=== PATIENT | female | born 1980 | race Caucasian/White ===

== ENCOUNTER 2016-06-08 08:43 | Emergency (ER) | payer OTHER ==
[~2016-06-08] VITALS: Ht 167.6 cm; Wt 68.0 kg
[~2016-06-08 08:43] MED LIST: AMOXICILLIN500 M2 PO; CHILDREN'S ASPI81 M1 PO; CLINDAMYCIN HC150 M1; FUROSEMIDE20 M1 PO; HYDROCHLOROTH12.5 M2 PO; HYSINGLA PO; IBUPROFEN800 M1 PO; LIORESAL 10MG T10 MG PO; MOTRIN 600 MG600 MG PO; NAPROSYN500 M1 PO; NORCO 5-325 TA1 EACH PO; ORPHENADRINE C100 MG PO; OXYCODONE HCL10 M2 PO; OXYCODONE HCL5 M1 PO; ULTRAM(MONOGRAP50 MG PO; VALIUM2 M1 PO; VITAMIN B12250 MCG PO
[2016-06-08] MEDS ORDERED: GABAPENTIN300 M2 PO (09:16)
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
--- NOTE | 2016-06-08 10:21 | RADIOLOGY REPORT ---
EXAMINATION: XR HAND, RIGHT CLINICAL INFORMATION: Third finger pain. COMPARISON: None TECHNIQUE: AP, lateral, and oblique views of the right hand. FINDINGS: There is an osseous extrusion off the mid to distal shaft of the right middle phalanx ulnarly somewhat atypical for a neck size ptosis or osteochondroma given its lucent center. There is a narrow zone of transition and appears to be arising from the cortex. This lesion measures 4 mm maximal dimension. This may represent a turret exostosis, especially if the patient has had a previous injury in this region. Comparison with any prior plain films would be helpful. Certainly it does not have an aggressive appearance. If patient is point tender in this region, MR imaging could be performed to further evaluate and/or orthopedic consultation. IMPRESSION: No acute fracture or dislocation. Small probable exostosis right third proximal phalanx.
[2016-06-08] MEDS ORDERED: VALIUM2 M1 PO (10:30)
[2016-06-08 10:42] VITALS: BP 130/80
[2016-08-23] MEDS ORDERED: PERCOCET 5-3251 EACH PO (16:08)
== END 2016-06-08 10:42 ==
LOC: ERH 08:43
DX: M89.9 Disorder of bone, unspecified (principal); G89.29 Other chronic pain; M54.2 Cervicalgia
CPT/HCPCS: 73130-RT; 81025

== ENCOUNTER 2016-06-24 08:33 | Emergency (ER) | payer OTHER ==
[~2016-06-24] VITALS: Ht 167.6 cm; Wt 68.0 kg
[~2016-06-24 08:33] MED LIST changes: +GABAPENTIN300 M2 PO
--- NOTE | 2016-06-24 08:53 | ED GENERAL ADULT ---
History of Present Illness General Chief Complaint: Neck/Upper Back Pain/Injury Stated Complaint: NECK PAIN/CHRONIC Source: patient Exam Limitations: no limitations Vital Signs & Intake/Output Vital Signs & Intake/Output ED Intake and Output 06/25 0000 06/24 1200 Intake Total 120 Output Total Balance 120 Intake, Oral 120 Patient 150 lb Weight Allergies Coded Allergies: tramadol (Intermediate, LIGHTHEADED AND NOT FEEL RIGHT, HOSPITALIZED 06/24/16) Reconcile Medications Aspirin (Children's Aspirin) 81 MG TAB 1 TAB PO DAILY HEART HEALTH (Reported) Cyanocobalamin (Vitamin B12) 250 MCG TAB 1 TAB PO DAILY SUPPLEMENT (Reported) Cyclobenzaprine HCl 10 MG TABLET 1 TAB PO BID PRN pain Gabapentin 300 MG CAPSULE 1 CAP PO TID PAIN (Reported) Hydrochlorothiazide 12.5 MG TABLET 1 TAB PO DAILY BP (Reported) Meloxicam (Mobic) 15 MG TABLET 1 TAB PO DAILY PRN pain Triage Note: PT TO ED WITH C/O NECK PAIN, "MY BOYFRIEND WAS HAVING ISSUES YESTERDAY AND HE WAS FALLING AND I CAUGHT HIM A COUPLE OF TIMES". Triage Nurses Notes Reviewed? yes Onset: Abrupt Duration: day(s): Timing: recent history : No Patient currently breastfeeds: No HPI: 06/24/16 9 AM This is a 35-year-old female presents to the emergency department complaining of neck pain. The patient states that she has a history of chronic cervical disc herniations. She says that her boyfriend has been having vertigo and she's had a catch him several times and this has exacerbated her neck pain. The onset of the symptoms was abrupt, the duration has been several days, the severity is significant as her symptoms required her to come to the emergency department for care. She has no trauma. No bowel or bladder dysfunction. No upper extremity weakness or numbness. Past History Travel History Traveled to [place] past 21 day No Medical History Any Pertinent Medical History? 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 No Review of Systems Review of Systems Constitutional: Denies: fever. EENTM: Denies: visual changes. Respiratory: Reports: no symptoms. Cardiovascular: Reports: no symptoms. GI: Reports: no symptoms. Genitourinary: Reports: no symptoms. Musculoskeletal: Reports: see HPI. Skin: Reports: no symptoms. Neurological/Psychological: Denies: numbness. Hematologic/Endocrine: Reports: no symptoms. Immunologic/Allergic: Reports: no symptoms. Physical Exam Physical Exam General Appearance: alert, awake, anxious, mild distress Head: atraumatic, normal appearance Eyes: Bilateral: normal appearance, PERRL, EOMI. Ears, Nose, Throat: normal ENT inspection Neck: limited range of motion Respiratory: decreased breath sounds Cardiovascular: regular rate/rhythm Peripheral Pulses: 4+ radial (R), 4+ radial (L) Back: normal range of motion Extremities: normal inspection Neurologic/Psych: no motor/sensory deficits, awake, alert, oriented x 3 Skin: intact, normal color, warm/dry Core Measures ACS in differential dx? No CVA/TIA Diagnosis: No Severe Sepsis Present: No Septic Shock Present: No Progress Differential Diagnoses I considered the following diagnoses in my evaluation of the patient: [Epidural abscess, disc herniation, central cord syndrome, cervical strain] Plan of Care: follow-up with [facility] practice or with her doctor this week. Initial ED EKG: none Departure Departure Disposition: HOME OR SELF CARE Condition: Stable Clinical Impression Primary Impression: Cervical strain Referrals: UNKNOWN (PCP/Family) Departure Forms: Customer Survey General Discharge Information Prescriptions: Current Visit Scripts Cyclobenzaprine HCl 1 TAB PO BID PRN pain #20 TAB Meloxicam (Mobic) 1 TAB PO DAILY PRN pain #10 TAB Comments the patient's symptoms improved with meds. she was given a soft cervical collar. to follow-up with her doctor this week. Critical Care Note Critical Care Note Critical Care Time: non-applicable
[2016-06-24] MEDS ORDERED: CYCLOBENZAPRINE10 M1 PO (09:10)
[2016-06-24] MEDS ORDERED: MOBIC15 M1 PO (09:10)
[2016-06-24 10:10] VITALS: BP 142/88
[2016-08-23] MEDS ORDERED: PERCOCET 5-3251 EACH PO (16:08)
== END 2016-06-24 10:20 ==
LOC: ERH 08:33
DX: S16.1XXA Strain of muscle, fascia and tendon at neck level, initial encounter (principal); X58.XXXA Exposure to other specified factors, initial encounter
CPT/HCPCS: 96372; J1885

== ENCOUNTER 2016-08-25 02:21 | Inpatient (IN) | payer OTHER ==
[~2016-08-25] VITALS: Ht 167.6 cm; Wt 78.0 kg
[~2016-08-25 02:21] MED LIST changes: +CYCLOBENZAPRINE10 M1 PO; +MOBIC15 M1 PO; +PERCOCET 5-3251 EACH PO
--- NOTE | 2016-08-25 11:44 | Operative Report ---
Operative/Inv Procedure Report Surgery Date: 08/25/16 Name of Procedure: cysto: bilateral stent insertion Pre-Operative Diagnosis: fibroids Post-Operative Diagnosis: same Estimated Blood Loss: scant Surgeon/Assembler Musical Instruments: MD MASON LATHAM-UROLOGY Anesthesia: general endotracheal tube Specimens: UCX Complications: NONE Operative/Procedure Note Note: The patient was taken to the operating room and placed on the OR table in supine position. Timeout was performed, with the patient awake, to confirm identify, planned procedures, anesthesia, antibiotics and other pertinent arpan-operative information. After adequate anesthesia, and IV antibiotics, the patient was placed in lithotomy Yellow-fin stirrups. She was then draped and prepped in the usual surgical fashion, including a vaginal prep. A 22 Kuwaiti cystoscope sheath with a 30 angle lens was inserted into the bladder without significant difficulty. The bladder was thoroughly and systematically examined, and was noted to be free of tumor, free of stone, free of endometriosis. Both ureteral orifices were in their orthotopic positions with clear reflux bilaterally. Under direct visualization the left orifice was intubated with a 5 Kuwaiti whistle-tip catheter, which was advanced easily into the left kidney pelvis. The right ureteral orifice was intubated with a second 5 Kuwaiti ureteral whistle tip catheter, and advanced into the right renal pelvis without difficulty. For identification purposes the blue marked stent went into the left kidney and the right ureteral stent was marked red. Urine culture was obtained and sent to pathology. The cystoscope was then removed leaving both stents in proper place. An 18 Kuwaiti Montero catheter was inserted draining clear fluid and 10 mL of sterile water was then placed in the balloon. The ends ureteral stents, which protruded externally, were taped to the Montero catheter in order to secure their position. The individual ureteral stents were then connected to their individual drainage devices. The patient tolerated the procedure well. All sponge needle and instrument count were correct at the end of this procedure. The patient was then placed in supine position with Venodyne's in place. At this point, Dr. Purdy was able to proceed with her patient's surgery. Discharge Disposition: PROCEED WITH DR. PURDY CC: NOA LONDON,MASON
[2016-08-25 12:55] VITALS: BP 132/64
--- NOTE | 2016-08-25 17:41 | Operative Report ---
Operative/Inv Procedure Report Surgery Date: 08/25/16 Name of Procedure: Total abdominal hysterectomy Pre-Operative Diagnosis: Metromenorrhagia Post-Operative Diagnosis: Same Estimated Blood Loss: 500 Surgeon/Veterinary Meat Inspector: RAFIA MARIA MD Anesthesia: general endotracheal tube Operative/Procedure Note Note: Procedure note patient was taken the operating room placed supine position after adequate induction general anesthesia via endotracheal tube patient placed in dorsolithotomy position the vagina was prepped and draped so fashion Dr. Enriquez were placed stents he'll dictate that part of the case patient was returned spine position the abdomen was prepped draped so fashion through an old Pfannenstiel skin incision skin was cut was carried down to rectus fascia which was cut in curvilinear fashion I direction peritoneal cavity was entered high into the abdomen Woody O'Matt was placed in usual fashion patient was placed in Trendelenburg round ligament on the right was identified suture- ligated using 0 round ligament left was identified suture-ligated 0 at this point a bladder flap was developed sharply as well as bluntly using both Metzenbaums as well as a Bovie on sequentially cervical branches uterine artery clamped and cut on the right and left and oversewn using 0 to level of the external os at this point the specimen was removed using a Bovie the cuff was reapproximated using interrupted [id number]'s of 0 and running locking suture of 0 hemostasis was apparent the abdomen was irrigated copious amounts warm sounds were clear hemostasis was apparent all pedicles were reexamined abdomen was irrigated close amounts warm saline I and hemostasis was apparent the peritoneum was reapproximated 0 the fascia was reapproximated to continue sutures #1 skin was reapproximated maggie at the end the case the counts correct the stents removed bilaterally tip intact the vagina had been irrigated for hemostasis is well the patient was extubated awakened from anesthesia and transferred recovery room awake alert with counts correct Findings: 10 week size fibroid uterus normal ovaries bilaterally evidence of tubal ligation
[2016-08-25] MEDS ORDERED: IBUPROFEN800 M1 PO (17:55)
[2016-08-25 19:17] VITALS: BP 136/82
[2016-08-25 20:00] VITALS: BP 148/72
[2016-08-25 20:45] VITALS: BP 148/72
[2016-08-25 22:00] VITALS: BP 140/70
[2016-08-25 23:54] VITALS: BP 122/76
[2016-08-26] VITALS (9 sets, daily range): BP systolic 122–132; BP diastolic 70–81
[2016-08-26 07:59] LABS: ABSOLUTE BASOPHIL COUNT 0 /CUMM (0.0-0.2); ABSOLUTE EOSINOPHIL COUNT 0 /CUMM (0.0-0.7); ABSOLUTE MONOCYTE COUNT 1.5 /CUMM (0.10-0.60); BASOPHIL % 0 % (0.0-2.0); EOSINOPHIL % 0 % (0-5); MEAN PLATELET VOLUME 8.6 FL (7.4-10.4)
[2016-08-26 08:21] LABS: ABSOLUTE GRANULOCYTE CT 17.2 /CUMM (1.4-6.5); ABSOLUTE LYMPH COUNT 1.8 /CUMM (1.2-3.4); GRANULOCYTE % 84.1 % (42.2-75.2); MEAN CORPUSCULAR HGB CONC 32.3 G/DL (33.0-37.0); MEAN CORPUSCULAR VOLUME 92.9 FL (81.0-99.0); PLATELET COUNT 378 /CUMM (130-400); RBC DISTRIBUTION WIDTH 16.6 % (11.5-14.5); RED BLOOD CELL CT 3.59 /CUMM (4.20-5.40)
[2016-08-26 08:23] LABS: HEMATOCRIT 33.4 % (37-47); WHITE BLOOD CELL COUNT 20.5 /CUMM (4.8-10.8)
--- NOTE | 2016-08-26 09:44 | PN- Post Delivery/GYN ---
Subjective Subjective: WANTS TO GO HOME POSITIVE BM Objective Last 24 Hrs of Vital Signs/I&O Vital Signs Date Time Temp Pulse Resp B/P Pulse O2 O2 Flow FiO2 Ox Delivery Rate 08/26 0739 99.9 110 20 132/81 93 Room Air / 0652 98.2 113 20 128/70 90 Room Air / 0600 98.2 113 20 128/70 04/07 0422 98.8 113 20 132/78 91 Room Air / 0400 98.8 113 20 132/78 04/07 0159 98.1 115 20 124/70 04/07 0151 98.1 115 20 124/70 93 Room Air 04/07 0000 98.8 120 20 122/76 04/06 2354 98.8 120 20 122/76 91 Room Air / 2200 98.2 119 16 140/70 04/ 2045 96.8 118 16 148/72 91 Room Air / 2000 98.6 118 16 148/72 04/06 1917 98.9 114 20 136/82 94 / 1255 98.7 105 20 132/64 97 Nasal 2.0L Cannula Intake & Output 08/26 1600 08/26 0800 08/26 0000 Intake Total 1440 715 Output Total 925 1250 Balance 515 -535 Intake, IV 1000 375 Intake, Oral 440 340 Output, Urine 925 1250 Physical Exam: PE PALE WF INNAD ABD SOFT NT INCISION CDI EXT -HOMANS -EDEMA Assessment/Plan Assessment/Plan ASSESS S/P JOSEPHINE PLAN D/C HOME
--- NOTE | 2016-09-08 14:15 | Surgical Discharge Summary ---
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 Home Who Do You Live With? Significant Other What is Your Primary Language? Burkinan Review of Systems: -13 point review of systems as stated in the [facility] Hospital Course Course Attending Physician: RAFIA MARIA MD Primary Care Physician: ADELA LONDON,[facility] Course: She was admitted for a total abdominal hysterectomy she did well first postoperative day patient wanted to go home her son is 10 years old does not do well with outer she Basque as daily and regular for throughout the evening she was walking freely without usual Montero and urinating without Montero was discharged on first postoperative follow-up physical exam Chappel white female poor dentition HEENT anicteric lungs clear abdomen soft incision clean dry and intact with maggie in place extremities negative edema negative Homans Allergies: Coded Allergies: tramadol (Intermediate, LIGHTHEADED AND NOT FEEL RIGHT, HOSPITALIZED 06/24/16) Disposition Summary Disposition Principal Diagnosis: Post total abdominal hysterectomy Additional Diagnosis: Anxiety Discharge Disposition: home or self care Discharge Instructions General Discharge Information Code Status: Full Code Patient's Diet: Regular Patient's Activity: Self-limited no heavy lifting greater than 15 pounds pelvic rest no top baths for 6 weeks no driving for 2 weeks Follow-Up Instructions/Appts: My office 1 week for removal of maggie Medications at Discharge Discharge Medications: Continue taking these medications: Aspirin (Children's Aspirin) 81 MG TAB 1 Tablet ORAL DAILY Cyanocobalamin (Vitamin B12) 250 MCG TAB 1 Tablet ORAL DAILY Hydrochlorothiazide (Hydrochlorothiazide) 12.5 MG TABLET 1 Tablet ORAL DAILY Qty = 90 Comments: Last Taken: 08/26/16 Time: 1000 AM Gabapentin (Gabapentin) 300 MG CAPSULE 1 Capsule ORAL THREE TIMES DAILY Qty = 90 Comments: Last Taken: 08/26/16 Time: 0600 AM Oxycodone HCl/Acetaminophen (Percocet 5-325 MG Tablet) 5 MG-325 MG TABLET 1 Tablet ORAL 4 TIMES A DAY Comments: Last Taken: 08/26/16 Time: 1000 AM Start taking the following new medications: Ibuprofen (Ibuprofen) 800 MG TABLET 800 Milligram ORAL EVERY SIX HOURS NEEDED as needed for PAIN Qty = 60 No Refills Comments: NOT GIVEN AT HOSPITAL
== END 2016-08-26 10:27 | DRG 513 ==
LOC: ENRESERVTM → ENRESERVDT → 2NB 02:21 → DELPENDDIS 02:21 → SDA 02:21 → ENPENDDIS 02:21 → SDA 07:00 → 2NB 12:35
PROVIDERS: ADMIT Specialist
PROC: 0UT90ZZ Resection of Uterus, Open Approach (ICD-10-PCS; principal; 2016-08-25)
PROC: 0UTC0ZZ Resection of Cervix, Open Approach (ICD-10-PCS; principal; 2016-08-25)
PROC: 0T788DZ Dilation of Bilateral Ureters with Intraluminal Device, Via Natural or Artificial Opening Endoscopic (ICD-10-PCS; 2016-08-25)
DX: N92.1 Excessive and frequent menstruation with irregular cycle (principal); I10 Essential (primary) hypertension; F17.210 Nicotine dependence, cigarettes, uncomplicated
CPT/HCPCS: 2NBSP; 36415; 81001; 81025; 87086; 88307; 93005; 93010; J0131; J0694; J1170; J1200; J1650; J2405

== ENCOUNTER 2016-10-11 19:52 | Emergency (ER) | payer OTHER ==
[~2016-10-11] VITALS: Ht 167.6 cm; Wt 72.6 kg
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
[2016-10-11] MEDS ORDERED: CYCLOBENZAPRINE10 M1 PO (22:21)
[2016-10-11] MEDS ORDERED: HYDROCODON-ACE1 EAC2 PO (22:21)
[2016-10-11 22:37] VITALS: BP 138/85
== END 2016-10-11 22:38 ==
LOC: ERH 19:52
DX: S16.1XXA Strain of muscle, fascia and tendon at neck level, initial encounter (principal); S29.012A Strain of muscle and tendon of back wall of thorax, initial encounter; V49.50XA Passenger injured in collision with unspecified motor vehicles in traffic accident, initial encounter; Y92.415 Exit ramp or entrance ramp of street or highway as the place of occurrence of the external cause
CPT/HCPCS: 81025

== ENCOUNTER 2016-11-15 15:54 | Emergency (ER) | payer OTHER ==
[~2016-11-15] VITALS: Ht 162.6 cm; Wt 79.4 kg
[~2016-11-15 15:54] MED LIST changes: +HYDROCODON-ACE1 EAC2 PO
[2016-11-15 15:58] VITALS: BP 153/98
== END 2016-11-15 16:30 | disposition admitted as inpatient to this hospital (09) ==
LOC: ERH 15:54
DX: R59.0 Localized enlarged lymph nodes (principal)

== ENCOUNTER 2016-12-14 17:45 | Emergency (ER) | payer OTHER ==
[~2016-12-14] VITALS: Ht 162.6 cm; Wt 77.1 kg
--- NOTE | 2016-12-14 18:47 | ED THROAT/DENTAL COMPLAINT ---
History of Present Illness General Chief Complaint: Sore Throat, Dental Pain Stated Complaint: DENTAL PAIN Source: patient Exam Limitations: no limitations Vital Signs & Intake/Output Vital Signs & Intake/Output ED Intake and Output 12/15 0000 12/14 1200 Intake Total Output Total Balance Patient 170 lb Weight Allergies Coded Allergies: tramadol (Intermediate, LIGHTHEADED AND NOT FEEL RIGHT, HOSPITALIZED 06/24/16) Reconcile Medications Aspirin (Children's Aspirin) 81 MG TAB.CHEW 1 TAB PO DAILY HEART/BLOOD ( Reported) Clindamycin HCl (Cleocin HCl) 300 MG CAPSULE 1 CAP PO TID GUM INFECTION Cyclobenzaprine HCl 10 MG TABLET 1 TAB PO TID SPASMS Gabapentin 300 MG CAPSULE 1 CAP PO TID PAIN (Reported) Hydrochlorothiazide 12.5 MG TABLET 1 TAB PO DAILY BP (Reported) Hydrocodone/Acetaminophen (Hydrocodon-Acetaminophen 5-325) 5 MG-325 MG TABLET 1-2 TAB PO Q4-6 PRN PRN pain Ketorolac Tromethamine 10 MG TABLET 1 TAB PO TID PRN PAIN RECEIVED IM IN ER Triage Note: 36F WITH SWELLING TO RIGHT NECK BELOW JAW SINCE YESTERDAY, BECAME PAINFUL TODAY WHILE EATING. TOOK MOTRIN 800MG 2 HOURS AGO WITHOUT RELIEF. LUMP IS HARD AND UNMOVABLE ON PALPATION. AFEBRILE. -N/V/D. DENIES OTHER COMPLAINTS Triage Nurses Notes Reviewed? yes Onset: Gradual Duration: getting worse Timing: recent history Severity: severe Severity Numbers: 7 : No Patient currently breastfeeds: No HPI: Patient is a 36-year-old female with past medical history poor dental hygiene who presents to emergency room with concerns of a three-day history of right- sided cheek and gum infection where she states in the month of December she has a referral for a oral surgeon who performed entire dental extraction with replacement. Denies any fever chills sore throat difficulty breathing difficulty swallowing (ELMA SAINI) Past History Travel History Traveled to [place] past 21 day No Medical History Any Pertinent Medical History? 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 No (ELMA SAINI) Review of Systems Review of Systems Constitutional: Reports: no symptoms. EENTM: Reports: no symptoms. Respiratory: Reports: no symptoms. Cardiovascular: Reports: no symptoms. GI: Reports: no symptoms. Genitourinary: Reports: no symptoms. Musculoskeletal: Reports: no symptoms. Skin: Reports: no symptoms. Neurological/Psychological: Reports: no symptoms. Hematologic/Endocrine: Reports: no symptoms. Immunologic/Allergic: Reports: no symptoms. All Other Systems: Reviewed and Negative (ELMA SAINI) Physical Exam Physical Exam General Appearance: no apparent distress, alert Mouth/Throat: normal mouth inspection, pharynx normal Neck: normal inspection, supple, full range of motion Diagram Dental: 1) Dental teeth noted to be uniform poor dental hygiene with multiple caries and noted old partial fractures throughout No gum swelling or tenderness Noted right side in BUCCAL SKIN IRRITATION AND SWELLING - NO ACTIVE BLEEDING Core Measures ACS in differential dx? No Severe Sepsis Present: No Septic Shock Present: No (ELMA SAINI) Progress Differential Diagnosis: aspirated tooth, carious tooth, epiglottitis, Ludwigs angina, meningitis, odontogenic abscess, arpan-tonsillar abscess, pharyngeal for. body, stomatitis/gingivitis, strep pharyngitis, tooth fracture Plan of Care: Current Medications Sig/Barbara Start time Last Medication Dose Stop Time Status Admin Ketorolac 30 MG ONCE ONE 12/14 1914 UNVr Tromethamine 12/15 1915 (Toradol) Pharynx was unremarkable tonsils were unremarkable on exam. Patient has no stress and S no submandibular swelling Patient will be treated for concerns of INNER CHEEK infection Patient was strongly advised to follow up with oral surgeon and to return to emergency room as discussed in discharge instructions (ELMA SAINI) Departure Departure Disposition: HOME OR SELF CARE Condition: Stable Clinical Impression Primary Impression: Cheek abrasion, infected Secondary Impressions: Dental caries, Poor dental hygiene Referrals: MARIO CHAPMAN MD (PCP/Family) Additional Instructions: As discussed follow-up with your ESTABLISHED oral surgeon in December, begin the prescription clindamycin and ketorolac for your symptoms. If symptoms worsen or IF YOU develop any new concerning symptom return to emergency room. Prescriptions waiting at [facility]. Departure Forms: Customer Survey General Discharge Information Prescriptions: Current Visit Scripts Clindamycin HCl (Cleocin HCl) 1 CAP PO TID #30 CAP Ketorolac Tromethamine 1 TAB PO TID PRN PAIN #15 TAB RECEIVED IM IN ER (LUIS HENRY,ELMA) PA/PRECISION FARMING COORDINATOR Co-Sign Statement Statement: ED Attending supervision documentation- [] I saw and evaluated the patient. I have also reviewed all the pertinent lab results and diagnostic results. I agree with the findings and the plan of care as documented in the PA's/PRECISION FARMING COORDINATOR's documentation. [X] I have reviewed the ED Record and agree with the PA's/PRECISION FARMING COORDINATOR's documentation. [] Additions or exceptions (if any) to the PAs/PRECISION FARMING COORDINATOR's note and plan are summarized below: [] (TROY LONDON,MISA)
[2016-12-14] MEDS ORDERED: KETOROLAC TROME10 M1 PO (19:19)
[2016-12-14] MEDS ORDERED: CLEOCIN HCL300 M1 PO (19:19)
[2016-12-14 19:20] VITALS: BP 112/70
== END 2016-12-14 19:24 ==
LOC: ERH 17:45
DX: S00.81XA Abrasion of other part of head, initial encounter (principal); K02.9 Dental caries, unspecified; X58.XXXA Exposure to other specified factors, initial encounter; Y92.9 Unspecified place or not applicable; Y93.9 Activity, unspecified
CPT/HCPCS: 96372; J1885

== ENCOUNTER 2017-06-15 08:50 | Emergency (ER) | payer OTHER ==
[~2017-06-15] VITALS: Ht 162.6 cm; Wt 72.6 kg
[~2017-06-15 08:50] MED LIST changes: +AMOX-CLAV 875-1 EACH PO; +AUGMENTIN 500-1 EACH PO; +CLEOCIN HCL300 M1 PO; +DULOXETINE HCL20 MG; +FLUOXETINE HCL40 M1 PO; +HYDROCHLOROTHIA25 M1 PO; +KETOROLAC TROME10 M1 PO; +MELOXICAM15 M1 PO; +VOLTAREN100 GM TOP
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
[2017-06-15] MEDS ORDERED: PREDNISONE20 M1 PO (11:09)
[2017-06-15 11:14] VITALS: BP 134/92
== END 2017-06-15 11:42 ==
LOC: ERH 08:50
DX: M51.24 Other intervertebral disc displacement, thoracic region (principal)
CPT/HCPCS: 96372